=== PATIENT | male | born 1985 | race African-American/Black ===

== ENCOUNTER 2016-11-04 17:53 | Emergency (ER) | payer OTHER ==
[2016-11-04] MEDS ORDERED: Sodium Chloride 0.9% 1,000 ML IV ONE (17:58)
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
== END 2016-11-04 20:00 | disposition home or self-care (01) ==
LOC: FB.ED 17:53
DX: S43.402A Unspecified sprain of left shoulder joint, initial encounter (principal); V89.2XXA Person injured in unspecified motor-vehicle accident, traffic, initial encounter
CPT/HCPCS: 36415; 73030; 80048; 80305; 81001; 85025; 96360; 99284; G0480; J7040